=== PATIENT | male | born 1980 | race African-American/Black ===

== ENCOUNTER 2018-08-29 19:30 | Emergency (ER) | payer OTHER ==
[~2018-08-29] VITALS: Ht 167.6 cm; Wt 63.5 kg
[2018-08-29] MEDS ORDERED: CLONAZEPAM 1 MG1 M1 PO (19:55)
[2018-08-29] MEDS ORDERED: PAXIL10 MG PO (19:55)
[2018-08-29 20:26] LABS: AMP/METHAMP Negative (Negative); BARBITURATES Negative (Negative); BENZODIAZEPINES Negative (Negative); COCAINE POSITIVE (Negative); METHADONE Negative (Negative); OPIATES POSITIVE (Negative); PCP Negative (Negative)
[2018-08-29 21:33] LABS: HEMATOCRIT 44.4 % (42.0-52.0); HEMOGLOBIN 15.1 gm/dL (14.0-18.0); MCH 27.3 pg (26.0-34.0); MCHC 33.9 g/dL (28.0-37.0); MCV 80.6 fL (80.0-100.0); PLATELET COUNT 219 thou/uL (150-400); RBC 5.52 mil/uL (4.50-6.00); RDW 13.4 % (10.5-14.5); WBC 4.6 thou/uL (4.0-11.0)
[2018-08-29 21:45] LABS: ANION GAP 7 mmol/L (7-16); BUN 13 mg/dL (7-18); CALCIUM 9.1 mg/dL (8.5-10.1); CHLORIDE 103 mmol/L (98-107); CO2 30 mmol/L (21-32); CREATININE 0.9 mg/dL (0.7-1.3); GLUCOSE 140 mg/dL (74-106); POTASSIUM 4.9 mmol/L (3.5-5.1); SODIUM 140 mmol/L (136-145)
[2018-08-29 21:51] LABS: ALBUMIN 3.3 g/dL (3.4-5.0); SALICYLATE < 2.8 mg/dL (2.8-20.0); SGOT 38 U/L (15-37); SGPT 47 U/L (30-65); TOTAL BILIRUBIN 0.4 mg/dL (<0.1-1.0); TOTAL PROTEIN 8.2 g/dL (6.4-8.2)
[2018-08-29 21:55] LABS: ABSOLUTE NEUTROPHILS 2.4 thou/uL (1.4-8.2)
[2018-08-29 21:56] LABS: ANISOCYTOSIS 1+
[2018-08-31 15:50] VITALS: BP 102/57
== END 2018-08-31 15:51 | disposition home or self-care (01) ==
LOC: ER 19:30
PROVIDERS: Emergency Medicine; Physician Assistant
DX: F32.9 Major depressive disorder, single episode, unspecified (principal); F14.10 Cocaine abuse, uncomplicated; F11.10 Opioid abuse, uncomplicated; R45.851 Suicidal ideations; F12.10 Cannabis abuse, uncomplicated; F17.210 Nicotine dependence, cigarettes, uncomplicated; Z86.19 Personal history of other infectious and parasitic diseases; Z79.899 Other long term (current) drug therapy